=== PATIENT | male | born 1950 | race Caucasian/White ===

== ENCOUNTER 2017-11-07 20:30 | Emergency (ER) | payer OTHER ==
[~2017-11-07] VITALS: Ht 182.9 cm; Wt 100.6 kg
[~2017-11-07 20:30] MED LIST: KEFLEX500 MG PO
[2017-11-07] MEDS ORDERED: MOBIC7.5 MG PO (23:39)
[2017-11-07] MEDS ORDERED: NORCO 5/3251 TABLET PO (23:39)
[2017-11-08 00:07] VITALS: BP 159/78
== END 2017-11-08 00:09 | disposition home or self-care (01) ==
LOC: EME 20:30
DX: M75.32 Calcific tendinitis of left shoulder (principal)
CPT/HCPCS: 73030; 99281; 99284; J1885